=== PATIENT | female | born 1985 | race Caucasian/White ===

== ENCOUNTER 2017-02-15 10:28 | Emergency (ER) | payer SELFPAY ==
[2017-02-15] MEDS ORDERED: Acetaminophen TAB* 325 MG PO ONE (11:53)
[2017-02-15] MEDS ORDERED: Acetaminophen TAB* 325 MG ONE (12:01)
[2017-02-15 12:21] LABS: Hematocrit 39 % (35-47); Hemoglobin 13.4 g/dl (12.0-16.0); Mean Corpuscular HGB Conc 35 g/dl (31-36); Mean Corpuscular Hemoglobin 31 pg (27-31); Mean Corpuscular Volume 91 fL (80-97); Mean Platelet Volume 10 um3 (7.4-10.4); Red Blood Count 4.28 10^6/ul (4.0-5.4); Red Cell Distribution Width 13 % (10.5-15); White Blood Count 6.4 10^3/ul (3.5-10.8)
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
--- NOTE | 2017-02-15 13:43 | RAD ---
Indication: Right wrist pain 3 views of the wrist demonstrates no fracture. No other bone or joint abnormality is identified. IMPRESSION: NO FRACTURE OF THE WRIST IS NOTED.
[2017-02-15 14:03] VITALS: BP 111/66
[2017-02-15 14:05] LABS: Albumin 4.3 g/dL (3.2-5.2); BUN/Creatinine Ratio 15.9 (8-20); EGFR African American 103.3 (>60); EGFR Non-African American 80.3 (>60); Globulin 2.3 g/dL (2-4); Potassium 4.1 mmol/L (3.5-5.0); Total Bilirubin 0.6 mg/dL (0.2-1.0); Total Protein 6.6 g/dL (6.4-8.9)
[2017-02-15] MEDS ORDERED: Iohexol 300* (CONTRAST) 10 ML SDV IV ONE (14:28)
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
== END 2017-02-15 15:33 | disposition home or self-care (01) ==
LOC: ED 10:28
DX: R10.32 Left lower quadrant pain (principal); M25.531 Pain in right wrist; V43.52XA Car driver injured in collision with other type car in traffic accident, initial encounter; Y92.410 Unspecified street and highway as the place of occurrence of the external cause
CPT/HCPCS: 36415; 70450; 71260; 72125; 74177; 80053; 85025; 99283; A9270-GY; Q9967

== ENCOUNTER 2017-09-09 09:26 | Emergency (ER) | payer OTHER ==
[2017-09-09 09:32] VITALS: BP 108/72
[2017-09-09] MEDS ORDERED: Ibuprofen TAB* 800 MG PO ONE (11:09)
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
[2017-09-09] MEDS ORDERED: HYDROcodone/ACETAMIN 5-325 MG* 1 TAB PO ONE (12:55)
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
== END 2017-09-09 14:18 | disposition home or self-care (01) ==
LOC: ED 09:26
DX: S82.832A Other fracture of upper and lower end of left fibula, initial encounter for closed fracture (principal); S80.211A Abrasion, right knee, initial encounter; S80.01XA Contusion of right knee, initial encounter; W10.9XXA Fall (on) (from) unspecified stairs and steps, initial encounter; Y92.9 Unspecified place or not applicable
CPT/HCPCS: A9270-GY

== ENCOUNTER → 2019-08-17 07:16 | Day surgery (SDC) | payer OTHER ==
[~2019-08-17 07:16] MED LIST: Acetaminophen TAB* 325 MG ONE; Acetaminophen TAB* 325 MG PO ONE; Buffered Lidocaine 1% SYRIN* 1 ML/SYRINGE INTRADERM ONE; Bupivacaine 0.5%* 50 ML MDV VIAL ONE; Dexamethasone IV* 4 MG/ML 1 ML (4 MG) ONE; Glycopyrrolate IV* 0.2 MG/ML 1 ML VIAL ONE; HYDROmorphone INJ1* 1 MG/ML SYRINGE ONE; Ibuprofen TAB* 600 MG ONE; Ketorolac INJ* 30 MG/ML 1 ML VIAL ONE; Lactated Ringers 1000 ML Bag* 1,000 ML IV SCH; Midazolam* 1 MG/ML 2 ML VIAL (2 MG) ONE; Naloxone* 0.4 MG/ML 1 ML VIAL IV PRN; Neostigmine Methylsulfate* 3 MG/3 ML SYRINGE ONE; Ondansetron INJ* 2 MG/ML VIAL IV PRN; Ondansetron INJ* 2 MG/ML VIAL ONE; PROCHLORPERAZINE INJ 5 MG/ML 2 ML VIAL IV PRN; Propofol* 10 MG/ML 20 ML BTL ONE; Rocuronium* 10 MG/ML VIAL ONE; ceFOXitin 2 GM IVPREMIX* 2 GM/50 ML BAG ONE; diPHENhydraMINE IV* 50 MG/ML 1 ml VIAL (BENADRYL) IV PRN; fentaNYL* 50 MCG/ML 5 ML VIAL (250 MCG VIAL) ONE; oxyCODONE TAB* 5 MG TAB ONE
[2019-08-17 08:53] LABS: ABS Eosinophils 0.1 10^3/ul (0-0.6); ABS Lymphocytes 1.7 10^3/ul (1.0-4.8); ABS Monocytes 0.6 10^3/ul (0-0.8); ABS Neutrophils 3.1 10^3/ul (1.5-7.7); Eosinophil % 2.4 %; Hematocrit 42 % (35-47); Hemoglobin 14.6 g/dL (12.0-16.0); Lymphocyte % 30.4 %; Mean Corpuscular HGB Conc 35 g/dL (31-36); Mean Corpuscular Hemoglobin 33 pg (27-31); Mean Corpuscular Volume 94 fL (80-97); Mean Platelet Volume 9.9 fL (7.4-10.4); Nucleated Red Blood Cells % 0.1; Platelet Count 204 10^3/uL (150-450); Red Blood Count 4.47 10^6 /uL (3.70-4.87); Red Cell Distribution Width 12 % (10-15); White Blood Count 5.5 10^3/uL (3.5-10.8)
[2019-08-17] MEDS: HYDROmorphone INJ1* 1 MG/ML SYRINGE IV PRN ×2 (10:37→10:46)
[2019-08-17] MEDS: oxyCODONE TAB* 5 MG TAB PO PRN ×2 (11:32→12:37)
[2019-08-17 15:27] VITALS: BP 119/74
--- NOTE | 2019-08-18 01:39 | OP ---
DATE OF OPERATION: 08/17/19 - [facility] DATE OF : 81 SURGEON: Nikki Ramesh MD HIGH WIRE ARTIST: Dr. Deniz Wang. ANESTHESIA: General with local. PRE-OP DIAGNOSIS: Left ovarian mass. POST-OP DIAGNOSIS: Left paratubal cyst. OPERATIVE PROCEDURE: Laparoscopic left paratubal cystectomy. ESTIMATED BLOOD LOSS: Minimal. URINE OUTPUT: 75 mL of clear yellow urine. FLUIDS: Greater than 700 mL of crystalloids. FINDINGS: Revealed a 5-cm left paratubal cyst, normal appearing tubes and ovaries bilaterally, normal appearing uterus, normal appearing bowel. The liver within an accessory lobe noted near the gallbladder, small in nature, about 2 cm in size. COMPLICATIONS: None apparent. DISPOSITION: Stable to recovery room. DESCRIPTION OF PROCEDURE: The patient was placed in dorsal lithotomy position. Legs were placed in universal Mike stirrups. The abdomen was prepped and draped in a sterile standard fashion. The patient was identified with universal protocol for correct procedure, patient, and position with a negative urine test. The bladder was drained for clear yellow urine 75 mL, self-cath was then removed. Sterile speculum was inserted. Cervix was visualized. ID strings were seen. A sponge stick with Ray-Emmett sponge was placed into the vagina. Sterile speculum was removed. Attention was then focused on the abdomen. 5 mL of 0.5% Marcaine was injected at the umbilicus. An incision was made using a scalpel. Fascia was incised with the scalpel, tented up using Oleksandr. The peritoneum was then entered bluntly. A fascial stitch was placed using 0-Vicryl on either side of the fascia. A blunt Manuelito 10 to 12-mm port was then inserted. Laparoscope was inserted. Pneumoperitoneum was created. At that point, two infraumbilical and lateral ports were placed under direct visualization after injection of 0.5% Marcaine for a total 10 mL, used on both right and left. The first port placed was on the right. Scalpel was used to incise the 5-mm incision. A 5-mm port and trocar were placed under direct visualization on the right. This process was repeated on the left. The liver edge was as described in the findings, a small accessory lobe was noted at the location of the gallbladder and pictures were obtained. Bowel was noted to have a normal appearance. Uterus was noted to be retroverted. Both right and left ovary had normal appearance, and both right and left tube fimbriae appeared normal. The left tube was on quite a bit of distention secondary to this 5 cm paratubal cyst. At that point, a sharp implant dissection was carried down of the left paratubal cyst using LigaSure and blunt probe. After complete excision of the paratubal cyst, a 5 mm bag was placed and the cyst was placed in the 5 mm bag and removed under direct visualization. The dissection site was then lavaged and irrigated with a suction reed press feeder and hemostasis was documented. Both right and left 5 mm trocar sites were removed under direct visualization. Hemostasis was assured with removal of the ports and then the 10 to 12 mm Manuelito port was removed under direct visualization after release of the pneumoperitoneum. The fascia was reapproximated at the umbilicus using 0-Vicryl in a running fashion and the stay sutures were removed. The skin was then reapproximated on all 3 sides using 4-0 Monocryl in a subcuticular fashion. Mastisol and Steris were applied. Sponge and forceps were removed from the vagina. All sponge, instruments, and blade counts were correct at the end of the case. The patient was returned to the dorsal lithotomy position after legs were taken out of [facility] Mike stirrups. The patient was then transported to the recovery room in stable condition. [id number]/[facility] #: [id number] MELISSA
== END | disposition home or self-care (01) ==
LOC: OR 07:16
PROVIDERS: ATTEND Obstetrics & Gynecology
DX: N83.8 Other noninflammatory disorders of ovary, fallopian tube and broad ligament (principal); Z87.891 Personal history of nicotine dependence
CPT/HCPCS: 36415; 81025; 85025; 86850; 86900; 86901; 88305; A9270-GY; J0694; J1100; J1170; J1885; J2250; J2405; J2704; J2710; J3010; J3490

== ENCOUNTER 2022-02-26 08:17 | Inpatient (IN) ==
[2022-02-26] MEDS ORDERED: Buffered Lidocaine 1% SYRIN 1 ml INTRADERM ONE (08:48)
[2022-02-26] MEDS ORDERED: Lactated Ringers 1000 ml BAG 1,000 ML IV ONE (08:48)
[2022-02-26] MEDS ORDERED: Lactated Ringers 1000 ml BAG 1,000 ML IV SCH (09:00)
[2022-02-26 10:10] LABS: ABS Lymphocytes 1.4 10^3/ul (1.0-4.8); ABS Monocytes 0.6 10^3/ul (0-0.8); ABS Neutrophils 5.6 10^3/ul (1.5-7.7); Eosinophil % 0.6 %; Hematocrit 33 % (35-47); Hemoglobin 11.3 g/dL (12.0-16.0); Lymphocyte % 17.8 %; Mean Corpuscular HGB Conc 35 g/dL (31-36); Mean Corpuscular Hemoglobin 33 pg (27-31); Mean Corpuscular Volume 96 fL (80-97); Mean Platelet Volume 11.2 fL (7.4-10.4); Platelet Count 135 10^3/uL (150-450); Red Cell Distribution Width 14 % (10-15); White Blood Count 7.7 10^3/uL (3.5-10.8)
[2022-02-26 10:25] LABS: Urine Benzodiazepine Screen None Detected (None Detect); Urine Cannabinoids Screen None Detected (None Detect); Urine Opiates Screen None Detected (None Detect)
[2022-02-26 10:50] LABS: Albumin 3.4 g/dL (3.2-5.2); Calcium 8.7 mg/dL (8.6-10.3); Potassium 3.9 mmol/L (3.5-5.0); Total Protein 5.7 g/dL (6.4-8.9); eGFR CKD-EPI 116.8 (>60)
[2022-02-26 10:51] LABS: Albumin/Globulin Ratio 1.5 (1-3); Globulin 2.3 g/dL (2-4); Total Bilirubin 0.6 mg/dL (0.2-1.0)
[2022-02-27] MEDS ORDERED: fentaNYL 100 mcg/2 ml 50 MCG/ML VIAL ONE (09:38)
[2022-02-27] MEDS ORDERED: Bupivacaine 0.5% SDV PF 30ML VIAL ONE (09:38)
[2022-02-27] MEDS ORDERED: Oxytocin in LR 20 UNITS/1,000 ML BAG IVPB ONE (09:50)
[2022-02-27] MEDS ORDERED: Dibucaine 1% OINT 28.35 GM TUBE PR PRN (10:04)
[2022-02-27] MEDS ORDERED: Glycerin ADULT 2.4 gm SUPP PR PRN (10:04)
[2022-02-27] MEDS ORDERED: Witch Hazel PAD JAR TOPICAL PRN (10:04)
[2022-02-27] MEDS ORDERED: Lactated Ringers 1000 ml BAG 1,000 ML IV SCH (11:00)
[2022-02-27] MEDS ORDERED: Oxytocin in LR 20 UNITS/1,000 ML BAG IVPB SCH (11:00)
[2022-02-28 08:17] LABS: ABS Lymphocytes 1.3 10^3/ul (1.0-4.8); ABS Monocytes 0.6 10^3/ul (0-0.8); ABS Neutrophils 5.8 10^3/ul (1.5-7.7); Eosinophil % 0.6 %; Hematocrit 30 % (35-47); Hemoglobin 10.2 g/dL (12.0-16.0); Lymphocyte % 16.7 %; Mean Corpuscular HGB Conc 35 g/dL (31-36); Mean Corpuscular Hemoglobin 33 pg (27-31); Mean Corpuscular Volume 95 fL (80-97); Mean Platelet Volume 10.7 fL (7.4-10.4); Platelet Count 125 10^3/uL (150-450); Red Blood Count 3.12 10^6 /uL (3.70-4.87); Red Cell Distribution Width 14 % (10-15); White Blood Count 7.7 10^3/uL (3.5-10.8)
[2022-03-01 07:41] VITALS: BP 112/60
== END 2022-03-01 16:16 | disposition home or self-care (01) | DRG 560 ==
LOC: MCHOBOUT 08:17 → MCHOB 09:32
PROVIDERS: ADMIT Obstetrics & Gynecology; ATTEND Obstetrics & Gynecology

== ENCOUNTER 2022-10-20 17:11 | Inpatient (IN) ==
[2022-10-20] MEDS ORDERED: NS 0.9% 1000 ml BAG 1,000 ML IV ONE (18:23)
[2022-10-20] MEDS ORDERED: Fluorescein Sodium TOPICAL TEST STRIP OPHTHALMIC ONE (18:25)
[2022-10-20 18:40] LABS: ABS Lymphocytes 1.2 10^3/ul (1.0-4.8); ABS Neutrophils 6.3 10^3/ul (1.5-7.7); Eosinophil % 0.5 %; Hematocrit 38 % (35-47); Hemoglobin 12.9 g/dL (12.0-16.0); Lymphocyte % 13.6 %; Mean Corpuscular HGB Conc 34 g/dL (31-36); Mean Corpuscular Hemoglobin 30 pg (27-31); Mean Corpuscular Volume 90 fL (80-97); Mean Platelet Volume 8.9 fL (7.4-10.4); Platelet Count 212 10^3/uL (150-450); Red Blood Count 4.28 10^6 /uL (3.70-4.87); Red Cell Distribution Width 14 % (10-15); White Blood Count 8.6 10^3/uL (3.5-10.8)
[2022-10-20 19:17] LABS: Calcium 8.7 mg/dL (8.6-10.3); Potassium 3.8 mmol/L (3.5-5.0); eGFR CKD-EPI 66.3 (>60)
[2022-10-20] MEDS ORDERED: Iohexol 350 (CONTRAST) 500 ML MDV IV ONE (19:20)
[2022-10-20] MEDS ORDERED: Piperacillin/Tazobac ADVAN 3.375 GM in NS 0.9% 100 ml BAG 100 ML IV ONE (20:59)
[2022-10-20 21:31] LABS: C Reactive Protein 35.03 mg/L (<8.01)
[2022-10-20] MEDS ORDERED: Zosyn per Pharmacy NOTE FOLLOW UP SCH (22:00)
[2022-10-21] MEDS: ZOSYN 3.375 GM Q8H per EXTENDED INFUSION IV SCH ×2 (01:39→08:50)
[2022-10-21] MEDS: cefTRIAXone 2 gm/50 mL D5W 2 GM/50 ML BAG IV SCH (09:43)
[2022-10-21] MEDS ORDERED: Vancomycin 2,000 MG in NS 0.9% 500 ml BAG 500 ML IVPB ONE (10:00)
[2022-10-21 10:33] LABS: ABS Lymphocytes 1.1 10^3/ul (1.0-4.8); ABS Monocytes 0.8 10^3/ul (0-0.8); ABS Neutrophils 4.4 10^3/ul (1.5-7.7); Eosinophil % 0.5 %; Hematocrit 39 % (35-47); Lymphocyte % 16.6 %; Mean Corpuscular HGB Conc 34 g/dL (31-36); Mean Corpuscular Hemoglobin 30 pg (27-31); Mean Corpuscular Volume 90 fL (80-97); Platelet Count 181 10^3/uL (150-450); Red Cell Distribution Width 13 % (10-15); White Blood Count 6.3 10^3/uL (3.5-10.8)
[2022-10-21 10:48] LABS: Calcium 9.1 mg/dL (8.6-10.3); Potassium 3.7 mmol/L (3.5-5.0); eGFR CKD-EPI 76.2 (>60)
[2022-10-21] MEDS ORDERED: Vancomycin per Pharmacy 1 EA NOTE FOLLOW UP PRN (11:35)
[2022-10-21] MEDS ORDERED: Linezolid 600 MG IVPREMIX(*) 600 MG/300 ML BAG IVPB SCH (12:00)
[2022-10-21] MEDS ORDERED: Morphine 2 MG/ML SYRINGE IV PRN (13:46)
[2022-10-21] MEDS: Linezolid 600 MG IVPREMIX(*) 600 MG/300 ML BAG IVPB SCH (15:20)
[2022-10-21] MEDS: Morphine 2 MG/ML SYRINGE IV PRN (20:21)
[2022-10-22] MEDS: Morphine 2 MG/ML SYRINGE IV PRN ×3 (00:21→19:48)
[2022-10-22] MEDS: Linezolid 600 MG IVPREMIX(*) 600 MG/300 ML BAG IVPB SCH ×2 (02:17→14:33)
[2022-10-22] MEDS: cefTRIAXone 2 gm/50 mL D5W 2 GM/50 ML BAG IV SCH (08:43)
[2022-10-23] MEDS: Morphine 2 MG/ML SYRINGE IV PRN ×2 (00:46→07:10)
[2022-10-23] MEDS: Linezolid 600 MG IVPREMIX(*) 600 MG/300 ML BAG IVPB SCH ×2 (02:18→12:01)
[2022-10-23 07:44] LABS: Potassium 4.2 mmol/L (3.5-5.0); eGFR CKD-EPI 80.2 (>60)
[2022-10-23 08:04] VITALS: BP 93/55
[2022-10-23] MEDS: cefTRIAXone 2 gm/50 mL D5W 2 GM/50 ML BAG IV SCH (09:34)
== END 2022-10-23 13:15 | disposition home or self-care (01) | DRG 383 ==
LOC: ED 17:11 → SUATTDRO 21:12 → EDHOLD 21:12 → MED 10-21 01:13
PROVIDERS: ADMIT Student in an Organized Health Care Education/Training Program; ATTEND Internal Medicine